=== PATIENT | female | born 1990 | race Caucasian/White ===

== ENCOUNTER 2018-04-02 20:02 | Inpatient (IN) | payer OTHER ==
[~2018-04-02] VITALS: Ht 170.2 cm; Wt 87.0 kg
--- NOTE | 2018-04-02 23:03 | PR ---
[facility] [address] [facility] [place], [place] [address] Signed Progress Notes IP Datetime Report Generated by CPN: 04/02/2018 23:02 PROGRESS NOTES: [id number] Impression: Normal progression of labor Plan: Continue present management; Anticipate Vaginal Delivery VITAL SIGNS: [id number] Vital Signs: Reviewed; Within Normal Limits EXAM: [id number] Dilatation: 9.5 Effacement: 95 Station: -1 Uterine Contractions: every b2-4 minutes MEMBRANES: [id number] Membrane Status: Ruptured Amniotic Fluid Color: Clear Comments: Comfortable with Epidural. Continue monitoring. Fetus A: [id number] FHR Baseline: 130 Variability: Moderate 6-25bpm Accelerations: 15X15 Decelerations: Variable Presentation: Vertex Fetus B: [id number] Signing Physician: Chel Longoria MD Copies: ~ *Electronically Signed* 04/02/18 2302 CHEL LONGORIA MD PATIENT NAME: ERIC FLOYD PROGRESS NOTE DATE OF : 88 PHYSICIAN: CHEL LONGORIA MD RPT #: [id number] REPORT IS CONFIDENTIAL AND NOT TO BE RELEASED WITHOUT AUTHORIZATION
== END 2018-04-05 14:45 | disposition home or self-care (01) | DRG 775 ==
LOC: FBCO 20:02 → FBC 20:35 → FBCO 04-03 15:01 → FBC 04-04 14:30
PROVIDERS: ADMIT General Practice
PROC: 00HU33Z Insertion of Infusion Device into Spinal Canal, Percutaneous Approach (ICD-10-PCS; 2018-04-02)
PROC: 3E0R3BZ Introduction of Anesthetic Agent into Spinal Canal, Percutaneous Approach (ICD-10-PCS; 2018-04-02)
PROC: 10E0XZZ Delivery of Products of Conception, External Approach (ICD-10-PCS; principal; 2018-04-03)
PROC: 0UQMXZZ Repair Vulva, External Approach (ICD-10-PCS; 2018-04-03)
PROC: 0UQGXZZ Repair Vagina, External Approach (ICD-10-PCS; 2018-04-03)
DX: O71.82 Other specified trauma to perineum and vulva (principal); O71.4 Obstetric high vaginal laceration alone; O76 Abnormality in fetal heart rate and rhythm complicating labor and delivery; Z3A.40 40 weeks gestation of pregnancy; Z87.891 Personal history of nicotine dependence; Z37.0 Single live birth
CPT/HCPCS: 01960; 36415; 85025; 85027; 85384; 85610; 85730; J2590; J7120

== ENCOUNTER 2020-04-27 07:50 | Inpatient (IN) | payer OTHER ==
[~2020-04-27] VITALS: Ht 170.2 cm; Wt 94.3 kg
--- NOTE | 2020-04-28 08:18 | PR ---
[facility] [address] [facility] [place], [place] [address] Signed PP Progress Notes Datetime Report Generated by CPN: 04/28/2020 08:18 SUBJECTIVE: [id number] Pain: Within Normal Limits Nausea/Vomiting: Denies Bowel Movement: No Vital Signs: [id number] EXAM: Met Abdomen/Uterus: Normal Lochia: Normal Extremities: Normal Exam Comments: Alert and cooperative Fundus firm below umbilicus Trace edema bilateral feet IMPRESSION/PLAN/PROCEDURES: [id number] Impression: Normal Progression Plan: Continue Present Management Progress Notes: [id number] PPD#1 s/p . Lochia light, pain well-controlled with orals. Tolerating full diet, ambulating, voiding without difficulty. Progressing well . without difficulty. Uncertain what she will use for contraception. Signing Physician: Albert Fenton DO Copies: ~ PATIENT NAME: ERIC FLOYD PROGRESS NOTE DATE OF : 88 PHYSICIAN: ALBERT FENTON DO RPT #: [id number] REPORT IS CONFIDENTIAL AND NOT TO BE RELEASED WITHOUT AUTHORIZATION
--- NOTE | 2020-04-29 09:19 | PR ---
[facility] [address] [facility] [place], [place] [address] Signed PP Progress Notes Datetime Report Generated by CPN: 04/29/2020 09:19 SUBJECTIVE: [id number] Pain: Within Normal Limits Nausea/Vomiting: Denies Flatus: Yes Bowel Movement: No Vital Signs: [id number] Vital Signs: Reviewed; Within Normal Limits EXAM: Met Cardiovascular: Normal Abdomen/Uterus: Normal Lochia: Normal Extremities: Normal Exam Comments: Alert/cooperative, baby Fundus firm below umbilicus No lower extremity edema IMPRESSION/PLAN/PROCEDURES: [id number] Impression: Normal Progression Plan: Discharge Progress Notes: PPD#2 s/p . Progressing well, without difficulty. Lochia light, ambulating/voiding/tolerating regular diet. Pain well controlled with orals. +flatus, no BM, on stool softener. Hopes to discharge today to home/boarder status. Baby under bili lights. Signing Physician: Albert Fenton DO Copies: ~ *Electronically Signed* 04/29/20 0919 ALBERT FENTON DO PATIENT NAME: FLOYDERIC WAITE PROGRESS NOTE DATE OF : 88 PHYSICIAN: ALBERT FENTON DO RPT #: [id number] REPORT IS CONFIDENTIAL AND NOT TO BE RELEASED WITHOUT AUTHORIZATION
== END 2020-04-29 16:30 | disposition home or self-care (01) | DRG 806 ==
LOC: FBCO 07:50 → FBC 08:29
PROVIDERS: ADMIT Obstetrics & Gynecology; ATTEND Obstetrics & Gynecology
PROC: 10E0XZZ Delivery of Products of Conception, External Approach (ICD-10-PCS; principal; 2020-04-27)
PROC: 0UQGXZZ Repair Vagina, External Approach (ICD-10-PCS; 2020-04-27)
PROC: 00HU33Z Insertion of Infusion Device into Spinal Canal, Percutaneous Approach (ICD-10-PCS; 2020-04-27)
PROC: 3E0R3BZ Introduction of Anesthetic Agent into Spinal Canal, Percutaneous Approach (ICD-10-PCS; 2020-04-27)
DX: O42.92 Full-term premature rupture of membranes, unspecified as to length of time between rupture and onset of labor (principal); O71.4 Obstetric high vaginal laceration alone; Z37.0 Single live birth; Z3A.40 40 weeks gestation of pregnancy; Z87.891 Personal history of nicotine dependence
CPT/HCPCS: 01960; 36415; 85027; A9270; J2590; J2795; J7121